=== PATIENT | male | born 1960 | race Caucasian/White ===

== ENCOUNTER 2021-12-28 06:52 | Emergency (ER) | payer OTHER ==
[~2021-12-28] VITALS: Ht 185.4 cm; Wt 90.7 kg
[2021-12-28 07:09] VITALS: BP 108/78
[2021-12-28] MEDS ORDERED: IBUPROFEN 600 MG TABLET ONE (07:12)
[2021-12-28] MEDS ORDERED: IBUPROFEN 600 MG TABLET PO ONE (07:30)
[2021-12-28] MEDS ORDERED: IBUP-1955 PO (08:54)
--- NOTE | 2021-12-28 09:06 | NUR ---
Patient discharged to home in stable condition. Written and verbal after care instructions given. Patient verbalizes understanding of instruction.
== END 2021-12-28 09:06 | disposition home or self-care (01) ==
LOC: ER 07:00 → EDBD 07:00 → ER 09:06
DX: M25.561 Pain in right knee (principal); M25.571 Pain in right ankle and joints of right foot; Z59.00 Homelessness unspecified; V49.9XXA Car occupant (driver) (passenger) injured in unspecified traffic accident, initial encounter; Y93.89 Activity, other specified; Y92.89 Other specified places as the place of occurrence of the external cause; Y99.8 Other external cause status
CPT/HCPCS: 73564-TC; 73610-TC

== ENCOUNTER 2022-01-23 17:56 | Emergency (ER) | payer OTHER ==
[~2022-01-23] VITALS: Ht 185.4 cm; Wt 99.8 kg
[~2022-01-23 17:56] MED LIST: IBUP-1955 PO
[2022-01-23] MEDS ORDERED: KETOROLAC TROMETHAMINE 15 MG/ML VIAL ONE (18:06)
--- NOTE | 2022-01-23 18:19 | NUR ---
TECH AT BEDSIDE FOR EKG
--- NOTE | 2022-01-23 18:20 | NUR ---
IV LINE ESTABLISHED ON RFA #20, BLOOD DRAWN AND SENT TO LAB
--- NOTE | 2022-01-23 18:23 | NUR ---
EMD TEACHER AT BEDSIDE FOR XRAY
--- NOTE | 2022-01-23 18:27 | NUR ---
COVID SWAB COLLECTED AND SENT TO LAB
[2022-01-23] MEDS ORDERED: KETOROLAC TROMETHAMINE INJ 30 MG/ML VIAL IV ONE (18:30)
[2022-01-23] MEDS ORDERED: IV NS 0.9% 500 ML BAG IV ONE (18:30)
[2022-01-23 18:52] LABS: CALCIUM, SERUM 8.5 mg/dL (8.5-10.1); CARBON DIOXIDE 28 mmol/L (21-32); CHLORIDE 105 mmol/L (98-107); CREATININE 0.9 mg/dL (0.6-1.3); GLUCOSE 108 mg/dL (74-106); POTASSIUM 3.7 mmol/L (3.5-5.1); SODIUM SERUM 142 mmol/L (136-145); UREA NITROGEN, BLOOD 18 mg/dL (7-18)
[2022-01-23 18:58] LABS: ALANINE AMINOTRANSFERASE 24 U/L (12-78); ALBUMIN 3.1 g/dL (3.4-5.0); ALKALINE PHOSPHATASE 73 U/L (46-116); ASPARTATE AMINOTRANSFERASE 20 U/L (15-37); BILIRUBIN,DIRECT 0.1 mg/dL (0.0-0.2); BILIRUBIN,TOTAL 0.3 mg/dL (0.2-1.0)
--- NOTE | 2022-01-23 19:15 | NUR ---
PT UNABLE TO PROVIDE URINE AT THIS TIME. URINAL PROVIDED AT BEDSIDE.
--- NOTE | 2022-01-23 19:30 | NUR ---
RECEIVED THIS MALE PATIENT LYING IN BED. AAOX3. PATIENT RESPONDS TO VERBAL COMMAND BUT WITH EPISODE OF CONFUSION. WITHDRAWS TO PAIN. PATIENT HAS PERIPHERAL LINE ON RIGHT FA USING G20 NEEDLE. PER AM SHIFT, PATIENT CAME WITH CC OF WEAKNESS TODAY. ATTACHED TO MONITOR. VITALS CHECKED.
[2022-01-23 19:45] VITALS: BP 130/67
--- NOTE | 2022-01-23 19:46 | NUR ---
PT REFUSING TO PROVIDE URINE SAMPLE, AWARE
[2022-01-23 19:50] LABS: BASOPHILS % (AUTO) 0.2 % (0.0-2.0); EOSINOPHILS % (AUTO) 1.4 % (0.0-6.0); HEMATOCRIT 35 % (39-51); HEMOGLOBIN 11.6 g/dL (13.5-17.5); LYMPHOCYTES # (AUTO) 1.6 K/uL (0.8-4.8); MEAN CORPUSCULAR HGB CONC 33 g/dl (31.0-36.0); MEAN CORPUSCULAR VOLUME 93 fL (80-96); MONOCYTES # (AUTO) 0.5 K/uL (0.1-1.30); MONOCYTES % (AUTO) 8.1 % (2.0-12.0); NEUTROPHILS # (AUTO) 3.9 K/uL (1.8-8.9); NEUTROPHILS % (AUTO) 64.3 % (43.0-81.0); PLATELET COUNT (AUTO) 288 K/uL (150-450); RED BLOOD CELL COUNT(AUTO) 3.71 MIL/uL (4.5-6.0); WHITE BLOOD COUNT (AUTO) 6.1 K/uL (4.3-11.0)
--- NOTE | 2022-01-23 19:51 | NUR ---
PT REFUSING BLOOD DRAW, AWARE
--- NOTE | 2022-01-23 20:15 | NUR ---
Patient discharged to home in stable condition. Written and verbal after care instructions given. Patient verbalizes understanding of instruction. IV removed. Catheter intact and site benign. Pressure and 4x4 applied to site. No bleeding noted. Pt ambulatory with a steady gait.
== END 2022-01-23 20:15 | disposition home or self-care (01) ==
LOC: ER 17:58
DX: R55 Syncope and collapse (principal); R53.1 Weakness; R53.83 Other fatigue; Z20.822 Contact with and (suspected) exposure to COVID-19; Z59.00 Homelessness unspecified
CPT/HCPCS: 99285; 96374; 96361; 93005; 71045; 85025; 80048; 83690; 80076; 36415; 84484; 87426; 80320; J7040; J1885; C9803; G0480